=== PATIENT | female | born 1985 | race Caucasian/White ===

== ENCOUNTER 2018-06-09 11:23 | Emergency (ER) | payer MEDICAID ==
[~2018-06-09] VITALS: Ht 162.6 cm; Wt 76.2 kg
[~2018-06-09 11:23] MED LIST: IBUP-2213 PO
[2018-06-09 11:33] VITALS: BP 93/56
--- NOTE | 2018-06-09 11:40 | NUR ---
PT IN ROOM 11
--- NOTE | 2018-06-09 11:49 | NUR ---
33 YEAR OLD FEMALE, CAME TO ED WITH CHIEF COMPLAINT OF N/V FOR 1 WEEK. PAIN IN HER ABDOMENT THAT RADIATES TO HER RIGHT LOWER QUADRANT. PT STATES SHE HAS BEEN UNABLE TO KEEP ANY FOOD OR DRINK DOWN FOR 2 DAYS. PT IS 7 WEEKS WITH CONFRIMED BLOOD TEST. PT IS AMBULATORY, a&0X4. DENIES ALL OTHER PAIN. S1S2 HEARD. BOWEL SOUNDS ACTIVE AND PRESENT IN ALL 4 QUADRANTS.
--- NOTE | 2018-06-09 12:00 | NUR ---
DR. LEGER AT BEDSIDE ASSESSING PT.
[2018-06-09] MEDS ORDERED: DEXT 5% / LACT RING 1,000 ML IV ONE ×2 (12:25→14:00)
[2018-06-09] MEDS ORDERED: ONDANSETRON 4 MG/2 ML VIAL IVP ONE (12:25)
[2018-06-09 13:12] LABS: BASOPHILS % (AUTO) 0.3 % (0.0-2.0); EOSINOPHILS # (AUTO) 0.1 K/uL (0-0.4); EOSINOPHILS % (AUTO) 1.2 % (0.0-4.0); HEMATOCRIT 38.7 % (36-48); HEMOGLOBIN 12.4 g/dL (12.0-16.0); LYMPHOCYTES # (AUTO) 1.5 K/uL (2.5-16.5); LYMPHOCYTES % (AUTO) 13.5 % (20.5-51.1); MEAN CORPUSCULAR HEMOGLOBIN 25 pg (27-31); MEAN CORPUSCULAR HGB CONC 32 g/dL (33-37); MEAN CORPUSCULAR VOLUME 78.7 fL (80-94); MONOCYTES # (AUTO) 0.6 K/uL (0.8-1.0); MONOCYTES % (AUTO) 5.6 % (1.7-9.3); NEUTROPHILS # (AUTO) 8.8 K/uL (1.8-7.7); NEUTROPHILS % (AUTO) 79.4 % (42.2-75.2); PLATELET COUNT (AUTO) 249 K/uL (140-450); RED BLOOD CELL COUNT(AUTO) 4.92 MIL/uL (4.20-5.40); WHITE BLOOD COUNT (AUTO) 11.1 K/uL (4.8-10.8)
[2018-06-09 13:13] LABS: APPEARANCE,URINE HAZY (CLEAR); BILIRUBIN,URINE 1+ (NEGATIVE); BLOOD, URINE TRACE-L (NEGATIVE); COLOR,URINE YELLOW (YELLOW); LEUKOCYTE ESTERASE ,URINE 3+ (NEGATIVE); NITRITE, URINE NEGATIVE (NEGATIVE); PH,URINE 6.5 (5.0-9.0); UGLUCOSE NEGATIVE (NEGATIVE)
[2018-06-09 13:15] LABS: RBC,URINE 0-5 (RARE) /HPF (0-5)
[2018-06-09] MEDS ORDERED: cefTRIAXone 1,000 MG VIAL ONE (14:06)
--- NOTE | 2018-06-09 14:38 | NUR ---
Pt stated she was feeling better but just threw up again, does not feel nauseated however.
--- NOTE | 2018-06-09 15:03 | NUR ---
Awaiting Dr. Murray's discharge paperwork.
[2018-06-09 15:19] VITALS: BP 128/79
--- NOTE | 2018-06-09 15:22 | NUR ---
Patient discharged with v/s stable. Written and verbal after care instructions given and explained. Patient alert, oriented and verbalized understanding of instructions. Ambulatory with steady gait. All questions addressed prior to discharge. ID band removed. Patient advised to follow up with PMD. Rx of ZOFRAN 4MG, PYRIDOXINE 50MG, CEPHALEXIN 500MG given. Patient educated on indication of medication including possible reaction and side effects. Opportunity to ask questions provided and answered.
== END 2018-06-09 15:22 | disposition home or self-care (01) ==
LOC: MED 11:23
DX: O23.41 Unspecified infection of urinary tract in pregnancy, first trimester (principal); O21.9 Vomiting of pregnancy, unspecified; Z3A.01 Less than 8 weeks gestation of pregnancy; Z79.899 Other long term (current) drug therapy
CPT/HCPCS: 36415; 76817; 81001; 84702; 85025; 86900; 86901; 87086; 96361; 96365; 96375; 99285; J0696; J2405; Q0092